=== PATIENT | male | born 1960 | race Caucasian/White ===

== ENCOUNTER 2019-08-04 20:51 | Inpatient (IN) | payer MEDICARE, OTHER ==
[~2019-08-04] VITALS: Ht 185.4 cm; Wt 77.3 kg
[~2019-08-04 20:51] MED LIST: ATOR40TA68 PO; LACO200T2 PO; LEVE10006 PO; LEVE500S8 GTB
[2019-08-04] MEDS ORDERED: CEFEPIME 2GM/50 ML (PMX) 50 ML IVPB STA (21:03)
[2019-08-04] MEDS ORDERED: SODIUM CHLORIDE 0.9% 1L BAG IV* STA (21:03)
[2019-08-04] MEDS ORDERED: VANCOMYCIN 1 GM (PMX) 250 ML IVPB ONE (21:30)
[2019-08-04] MEDS ORDERED: LORAZEPAM 2 MG INJ IM STA (21:32)
[2019-08-04] MEDS ORDERED: LEVETIRACETAM 1000 MG (PMX) 100 ML IVPB STA (21:33)
[2019-08-04] MEDS ORDERED: LEVETIRACETAM 1000 MG (PMX) 100 ML IVPB ONE (22:30)
[2019-08-04] MEDS ORDERED: FOSPHENYTOIN 100 MG PE/2ML INJ IV ONE (22:30)
[2019-08-04] MEDS ORDERED: SOD CHLORIDE 0.9% IVPB ONE (23:00)
[2019-08-04] MEDS ORDERED: FOSPHENYTOIN IVPB ONE (23:00)
[2019-08-04] MEDS ORDERED: LACTATED RINGER'S 1,000 ML IV STA (23:55)
[2019-08-05] VITALS (81 sets, daily range): BP systolic 72–119; BP diastolic 55–83; PULSE 72–105; RESP 8–46; Ht 185.4 cm; Wt 77.3 kg
[2019-08-05] MEDS ORDERED: ACETAMINOPHEN 650MG/20.3ML CUP PO PRN (01:00)
[2019-08-05] MEDS: DOCUSATE SODIUM 100 MG CAP PO SCH ×2 (01:00→13:00)
[2019-08-05] MEDS ORDERED: LORAZEPAM 2 MG INJ IV ONE (01:00)
[2019-08-05] MEDS ORDERED: MAGNESIUM HYDROXIDE 30ML CUP PO PRN (01:00)
[2019-08-05] MEDS ORDERED: ONDANSETRON 4 MG INJ IV PRN (01:00)
[2019-08-05] MEDS ORDERED: HYDROCODONE/APAP (5/325) TAB PO PRN ×2 (01:00)
[2019-08-05] MEDS ORDERED: NORepinephrine 8MG/250 ML (PMX 250 ML IV STA (01:05)
[2019-08-05] MEDS: ALBUTEROL/IPRATROPIUM (NEB) 3 ML AMP NEB SCH ×6 (02:15→21:55)
[2019-08-05] MEDS: DEXTROSE 5% 1,000 ML IV SCH ×3 (06:43→22:50)
[2019-08-05] MEDS: PANTOPRAZOLE 40 MG INJ IV SCH (06:43)
[2019-08-05] MEDS ORDERED: VANCOMYCIN IV PER PHARMACY XX SCH (09:00)
[2019-08-05] MEDS ORDERED: LEVETIRACETAM 1000 MG (PMX) 100 ML IVPB SCH (09:00)
[2019-08-05] MEDS ORDERED: LEVETIRACETAM 1500 MG (PMX) 100 ML IVPB SCH (09:00)
[2019-08-05] MEDS: CEFEPIME 1GM/50 ML (PMX) 50 ML IVPB SCH ×2 (09:58→20:58)
[2019-08-05] MEDS ORDERED: LACOSAMIDE 200 MG TABLET PO SCH (10:00)
[2019-08-05] MEDS: VANCOMYCIN 1.25 GM/NS 250 ML 250 ML IVPB SCH ×2 (11:58→22:46)
[2019-08-05] MEDS: LACOSAMIDE (100 MG/10 ML PO SYR) GTB SCH ×2 (14:33→21:05)
[2019-08-05] MEDS: NORepinephrine 8MG/250 ML (PMX 250 ML IV SCH ×3 (14:34→22:43)
[2019-08-05] MEDS: PHENYLephrine 20MG IN 250 ML 250 ML IV SCH ×3 (17:56→22:39)
[2019-08-05] MEDS: POTASSIUM CHLORIDE 50 ML IVPB PRN ×3 (20:46→23:21)
[2019-08-05] MEDS: LORAZEPAM 2 MG INJ IV PRN (20:59)
[2019-08-05] MEDS ORDERED: LEVETIRACETAM 500 MG TAB NGT SCH (21:00)
[2019-08-06] VITALS (103 sets, daily range): BP systolic 61–124; BP diastolic 49–96; PULSE 76–113; RESP 13–51
[2019-08-06] MEDS ORDERED: ALBUMIN HUMAN 25% 100 ML IV ONE
[2019-08-06] MEDS ORDERED: SODIUM CHLORIDE 0.45% 500 ML BAG IV* ONE
[2019-08-06] MEDS: PHENYLephrine 20MG IN 250 ML 250 ML IV SCH ×3 (00:46→07:11)
[2019-08-06] MEDS: DOCUSATE SODIUM 100 MG CAP PO SCH ×2 (01:00→13:00)
[2019-08-06] MEDS: ALBUTEROL/IPRATROPIUM (NEB) 3 ML AMP NEB SCH ×3 (01:17→09:40)
[2019-08-06] MEDS: PIPER-TAZO 3.375 GM IV (PMX) 100 ML IVPB SCH ×4 (02:29→17:17)
[2019-08-06] MEDS ORDERED: FUROSEMIDE 20 MG INJ IV ONE (02:30)
[2019-08-06] MEDS: POTASSIUM CHLORIDE 50 ML IVPB PRN ×3 (03:36→12:54)
[2019-08-06] MEDS: NORepinephrine 8MG/250 ML (PMX 250 ML IV SCH (04:01)
[2019-08-06] MEDS: PANTOPRAZOLE 40 MG INJ IV SCH (05:28)
[2019-08-06] MEDS ORDERED: PHENYTOIN 1,000 MG in SOD CHLORIDE 0.9% 100 ML IV ONE (08:00)
[2019-08-06] MEDS: DEXTROSE 5% 1,000 ML IV SCH ×2 (09:20→21:12)
[2019-08-06] MEDS ORDERED: NORepinephrine 8MG/250 ML (PMX 250 ML IV SCH (09:30)
[2019-08-06] MEDS: LACOSAMIDE (100 MG/10 ML PO SYR) GTB SCH ×2 (10:00→21:12)
[2019-08-06] MEDS ORDERED: DEXTROSE 50% 50 ML SYRINGE IV PRN (10:00)
[2019-08-06] MEDS ORDERED: GLUCOSE GEL 15 GRAM TUBE PO PRN ×2 (10:00)
[2019-08-06] MEDS ORDERED: GLUCAGON 1 MG INJ IM PRN (10:00)
[2019-08-06] MEDS ORDERED: GLUCOSE GEL 15 GRAM TUBE BUCCAL PRN (10:00)
[2019-08-06] MEDS: LEVETIRACETAM 500 MG TAB NGT SCH ×2 (10:00→21:12)
[2019-08-06] MEDS: VANCOMYCIN 1.25 GM/NS 250 ML 250 ML IVPB SCH (10:10)
[2019-08-06] MEDS ORDERED: PHENYLephrine 20MG IN 250 ML 250 ML IV SCH (10:30)
[2019-08-06] MEDS: FENTAnyl 1,000 MCG in SOD CHLORIDE 0.9% 80 ML IV SCH (10:58)
[2019-08-06] MEDS: PHENYLephrine 80 MG in DEXTROSE 5% 242 ML IV SCH ×3 (12:28→21:23)
[2019-08-06] MEDS: INSULIN ASPART [NOVOLOG] 3 ML PEN SC SCH ×3 (13:33→21:23)
[2019-08-06] MEDS: NORepinephrine 32 MG in DEXTROSE 5% 218 ML IV SCH (13:42)
[2019-08-06] MEDS: ALBUTEROL HFA 8 GM INHALER INH SCH ×3 (14:15→21:00)
[2019-08-06] MEDS: IPRATROPIUM (HFA) 12.9 GM INHALER INH SCH ×3 (14:15→21:00)
[2019-08-06] MEDS ORDERED: VASOPRESSIN 100 UNIT in SOD CHLORIDE 0.9% 95 ML IV SCH (15:00)
[2019-08-06] MEDS: PHENYTOIN 100 MG INJ IV SCH ×2 (15:20→21:15)
[2019-08-06] MEDS: VASOPRESSIN 60 UNIT in DEXTROSE 5% 60 ML IV SCH ×2 (15:30→18:23)
[2019-08-06] MEDS ORDERED: DOPamine 1,600 MG in DEXTROSE 5% 210 ML IV PRN (20:00)
[2019-08-07] VITALS (106 sets, daily range): BP systolic 80–154; BP diastolic 61–93; PULSE 56–109; RESP 15–34
[2019-08-07] MEDS: PIPER-TAZO 3.375 GM IV (PMX) 100 ML IVPB SCH ×5 (00:55→23:58)
[2019-08-07] MEDS: INSULIN ASPART [NOVOLOG] 3 ML PEN SC SCH ×2 (00:57→04:57)
[2019-08-07] MEDS: DOCUSATE SODIUM 100 MG CAP PO SCH ×3 (01:00→23:59)
[2019-08-07] MEDS: PHENYLephrine 80 MG in DEXTROSE 5% 242 ML IV SCH ×4 (01:53→18:42)
[2019-08-07] MEDS: ALBUTEROL HFA 8 GM INHALER INH SCH ×6 (02:02→21:45)
[2019-08-07] MEDS: IPRATROPIUM (HFA) 12.9 GM INHALER INH SCH ×6 (02:02→21:45)
[2019-08-07] MEDS: PANTOPRAZOLE 40 MG INJ IV SCH (05:53)
[2019-08-07] MEDS: PHENYTOIN 100 MG INJ IV SCH (05:53)
[2019-08-07] MEDS: NORepinephrine 32 MG in DEXTROSE 5% 218 ML IV SCH (07:35)
[2019-08-07] MEDS: ACCU-CHEK XX SCH ×16 (08:30→23:30)
[2019-08-07] MEDS ORDERED: INSULIN HUMAN REGULAR 100 UNIT in SOD CHLORIDE 0.9% 99 ML IV SCH (08:30)
[2019-08-07] MEDS ORDERED: DEXTROSE 50% 50 ML SYRINGE IV PRN ×2 (08:30)
[2019-08-07] MEDS: LEVETIRACETAM 500 MG TAB NGT SCH ×3 (09:00→20:42)
[2019-08-07] MEDS: VASOPRESSIN 60 UNIT in DEXTROSE 5% 60 ML IV SCH (09:10)
[2019-08-07] MEDS: POTASSIUM CHLORIDE 50 ML IVPB PRN (09:16)
[2019-08-07] MEDS: LACOSAMIDE (100 MG/10 ML PO SYR) GTB SCH ×2 (09:17→20:41)
[2019-08-07] MEDS ORDERED: VANCOMYCIN 1.25 GM/NS 250 ML 250 ML IVPB SCH (11:00)
[2019-08-07] MEDS: METOCLOPRAMIDE 10 MG INJ IV SCH ×3 (17:00→23:59)
[2019-08-07] MEDS: DEXTROSE 50% 50 ML SYRINGE IV PRN ×2 (19:34→22:37)
[2019-08-07] MEDS: BALSAM PERU/CASTOR OIL 60 GM TUBE TOP SCH (20:47)
[2019-08-08] VITALS (90 sets, daily range): BP systolic 75–109; BP diastolic 59–81; PULSE 59–102; RESP 7–31
[2019-08-08] MEDS: FENTAnyl 1,000 MCG in SOD CHLORIDE 0.9% 80 ML IV SCH (00:12)
[2019-08-08] MEDS: ACCU-CHEK XX SCH ×20 (00:30→19:30)
[2019-08-08] MEDS: IPRATROPIUM (HFA) 12.9 GM INHALER INH SCH ×2 (01:17→05:24)
[2019-08-08] MEDS: ALBUTEROL HFA 8 GM INHALER INH SCH ×2 (01:17→05:24)
[2019-08-08] MEDS: VASOPRESSIN 60 UNIT in DEXTROSE 5% 60 ML IV SCH ×2 (03:03→15:27)
[2019-08-08] MEDS: NORepinephrine 32 MG in DEXTROSE 5% 218 ML IV SCH (04:46)
[2019-08-08] MEDS: PANTOPRAZOLE 40 MG INJ IV SCH (05:37)
[2019-08-08] MEDS: PIPER-TAZO 3.375 GM IV (PMX) 100 ML IVPB SCH ×2 (05:37→11:15)
[2019-08-08] MEDS: METOCLOPRAMIDE 10 MG INJ IV SCH ×3 (05:37→18:40)
[2019-08-08] MEDS: POTASSIUM CHLORIDE 50 ML IVPB PRN ×3 (06:48→11:11)
[2019-08-08] MEDS: LEVETIRACETAM 500 MG TAB NGT SCH ×2 (08:19→21:33)
[2019-08-08] MEDS: LACOSAMIDE (100 MG/10 ML PO SYR) GTB SCH ×2 (08:19→21:33)
[2019-08-08] MEDS ORDERED: ALBUTEROL HFA 8 GM INHALER INH SCH (12:00)
[2019-08-08] MEDS: DOCUSATE SODIUM 100 MG CAP PO SCH (14:14)
[2019-08-08] MEDS: metroNIDAZOLE 500 MG/NS (PMX) 100 ML IVPB SCH ×2 (14:17→21:32)
[2019-08-08] MEDS: DEXTROSE 50% 50 ML SYRINGE IV PRN (15:24)
[2019-08-08] MEDS ORDERED: FUROSEMIDE 40 MG INJ IV ONE (16:30)
[2019-08-08] MEDS ORDERED: ALBUMIN HUMAN 25% 100 ML IV ONE (16:30)
[2019-08-08] MEDS: SOD CHLORIDE 0.9% 500 ML IV ONE ×2 (16:39→16:49)
[2019-08-08] MEDS ORDERED: INSULIN ASPART [NOVOLOG] 3 ML PEN SC SCH (21:00)
[2019-08-08] MEDS ORDERED: ACCU-CHEK XX SCH (21:00)
[2019-08-08] MEDS: CEFEPIME 1GM/50 ML (PMX) 50 ML IVPB SCH (21:32)
[2019-08-08] MEDS: BALSAM PERU/CASTOR OIL 60 GM TUBE TOP SCH (21:36)
[2019-08-09] VITALS (103 sets, daily range): BP systolic 82–135; BP diastolic 59–95; PULSE 70–113; RESP 14–35
[2019-08-09] MEDS: DOCUSATE SODIUM 100 MG CAP PO SCH ×2 (00:30→12:39)
[2019-08-09] MEDS: METOCLOPRAMIDE 10 MG INJ IV SCH ×4 (00:32→17:23)
[2019-08-09] MEDS: ACCU-CHEK XX SCH (01:46)
[2019-08-09] MEDS: INSULIN ASPART [NOVOLOG] 3 ML PEN SC SCH ×6 (01:51→21:36)
[2019-08-09] MEDS: LORAZEPAM 2 MG INJ IV PRN ×2 (01:55→11:15)
[2019-08-09] MEDS: VASOPRESSIN 60 UNIT in DEXTROSE 5% 60 ML IV SCH ×2 (03:30→15:24)
[2019-08-09] MEDS: FENTAnyl 1,000 MCG in SOD CHLORIDE 0.9% 80 ML IV SCH (03:43)
[2019-08-09] MEDS: NORepinephrine 32 MG in DEXTROSE 5% 218 ML IV SCH (04:00)
[2019-08-09] MEDS: PANTOPRAZOLE 40 MG INJ IV SCH (05:46)
[2019-08-09] MEDS: metroNIDAZOLE 500 MG/NS (PMX) 100 ML IVPB SCH ×3 (05:47→21:24)
[2019-08-09] MEDS: LEVETIRACETAM 500 MG TAB NGT SCH ×2 (08:25→21:23)
[2019-08-09] MEDS: CEFEPIME 1GM/50 ML (PMX) 50 ML IVPB SCH ×2 (08:26→21:24)
[2019-08-09] MEDS: LACOSAMIDE (100 MG/10 ML PO SYR) GTB SCH ×2 (08:26→21:24)
[2019-08-09] MEDS: BALSAM PERU/CASTOR OIL 60 GM TUBE TOP SCH (08:26)
[2019-08-09] MEDS ORDERED: POTASSIUM PHOSPHATE 40 MEQ in SOD CHLORIDE 0.9% 250 ML IVPB ONE (10:00)
[2019-08-09] MEDS ORDERED: SOD CHLORIDE 0.9% 500 ML IV ONE (14:00)
[2019-08-09] MEDS ORDERED: ALBUMIN HUMAN 25% 100 ML IV ONE (14:00)
[2019-08-09] MEDS ORDERED: FUROSEMIDE 40 MG INJ IV ONE (14:00)
[2019-08-10] VITALS (98 sets, daily range): BP systolic 85–128; BP diastolic 68–101; PULSE 76–110; RESP 13–37
[2019-08-10] MEDS: METOCLOPRAMIDE 10 MG INJ IV SCH ×4 (00:50→17:39)
[2019-08-10] MEDS: DOCUSATE SODIUM 100 MG CAP PO SCH (00:50)
[2019-08-10] MEDS: INSULIN ASPART [NOVOLOG] 3 ML PEN SC SCH ×6 (00:53→20:35)
[2019-08-10] MEDS: ACCU-CHEK XX SCH (01:07)
[2019-08-10] MEDS: VASOPRESSIN 60 UNIT in DEXTROSE 5% 60 ML IV SCH ×2 (03:30→15:30)
[2019-08-10] MEDS: PANTOPRAZOLE 40 MG INJ IV SCH (05:40)
[2019-08-10] MEDS: metroNIDAZOLE 500 MG/NS (PMX) 100 ML IVPB SCH ×3 (05:40→22:07)
[2019-08-10] MEDS: POTASSIUM CHLORIDE 50 ML IVPB PRN ×3 (06:03→19:38)
[2019-08-10] MEDS ORDERED: MAGNESIUM SULFATE 1 GM/D5W 100 ML IVPB ONE (07:00)
[2019-08-10] MEDS: CEFEPIME 1GM/50 ML (PMX) 50 ML IVPB SCH ×2 (08:55→20:33)
[2019-08-10] MEDS: POTASSIUM CHLORIDE 50 ML IVPB SCH ×4 (08:56→14:15)
[2019-08-10] MEDS: LEVETIRACETAM 500 MG TAB NGT SCH ×2 (08:57→20:32)
[2019-08-10] MEDS: LACOSAMIDE (100 MG/10 ML PO SYR) GTB SCH ×2 (09:36→20:33)
[2019-08-10] MEDS: BALSAM PERU/CASTOR OIL 60 GM TUBE TOP SCH (09:48)
[2019-08-10] MEDS: DOCUSATE SODIUM 10 MG/ML (10ML CUP) NGT SCH (20:32)
[2019-08-11] VITALS (68 sets, daily range): BP systolic 80–121; BP diastolic 68–111; PULSE 90–110; RESP 13–36
[2019-08-11] MEDS: METOCLOPRAMIDE 10 MG INJ IV SCH ×4 (00:46→17:12)
[2019-08-11] MEDS: INSULIN ASPART [NOVOLOG] 3 ML PEN SC SCH ×6 (00:47→21:38)
[2019-08-11] MEDS: ACCU-CHEK XX SCH (02:00)
[2019-08-11] MEDS: BALSAM PERU/CASTOR OIL 60 GM TUBE TOP SCH (02:22)
[2019-08-11] MEDS: VASOPRESSIN 60 UNIT in DEXTROSE 5% 60 ML IV SCH ×2 (03:30→15:30)
[2019-08-11] MEDS: PANTOPRAZOLE 40 MG INJ IV SCH (05:12)
[2019-08-11] MEDS: metroNIDAZOLE 500 MG/NS (PMX) 100 ML IVPB SCH ×3 (05:12→21:36)
[2019-08-11] MEDS: POTASSIUM CHLORIDE 50 ML IVPB PRN ×4 (07:35→16:53)
[2019-08-11] MEDS: CEFEPIME 1GM/50 ML (PMX) 50 ML IVPB SCH ×2 (09:01→21:36)
[2019-08-11] MEDS: DOCUSATE SODIUM 10 MG/ML (10ML CUP) NGT SCH ×2 (09:10→21:36)
[2019-08-11] MEDS: LACOSAMIDE (100 MG/10 ML PO SYR) GTB SCH ×2 (09:10→21:36)
[2019-08-11] MEDS: LEVETIRACETAM 500 MG TAB NGT SCH ×2 (09:10→21:36)
[2019-08-11] MEDS ORDERED: POTASSIUM CHLORIDE 20 MEQ POWDER FOR ORAL SOLN NGT ONE (09:30)
[2019-08-11] MEDS: COLLAGENASE 5 GM (UD JAR) TOP SCH (10:45)
[2019-08-11] MEDS: LORAZEPAM 2 MG INJ IV PRN (11:10)
[2019-08-11] MEDS ORDERED: VANCOMYCIN 1 GM 250 ML IVPB SCH (12:00)
[2019-08-12] VITALS (34 sets, daily range): BP systolic 75–120; BP diastolic 62–105; PULSE 94–128; RESP 14–35
[2019-08-12] MEDS: METOCLOPRAMIDE 10 MG INJ IV SCH ×5 (00:17→23:18)
[2019-08-12] MEDS: INSULIN ASPART [NOVOLOG] 3 ML PEN SC SCH ×6 (00:24→21:23)
[2019-08-12] MEDS: ACCU-CHEK XX SCH (01:01)
[2019-08-12] MEDS: VASOPRESSIN 60 UNIT in DEXTROSE 5% 60 ML IV SCH ×2 (03:30→15:30)
[2019-08-12] MEDS: metroNIDAZOLE 500 MG/NS (PMX) 100 ML IVPB SCH ×3 (05:54→22:08)
[2019-08-12] MEDS: PANTOPRAZOLE 40 MG INJ IV SCH (05:54)
[2019-08-12] MEDS: LORAZEPAM 2 MG INJ IV PRN ×2 (05:54→12:20)
[2019-08-12] MEDS: LACOSAMIDE (100 MG/10 ML PO SYR) GTB SCH ×2 (08:29→21:07)
[2019-08-12] MEDS: LEVETIRACETAM (100 MG/ML) 5ML CUP GTB SCH ×2 (08:29→21:07)
[2019-08-12] MEDS: DOCUSATE SODIUM 10 MG/ML (10ML CUP) NGT SCH ×2 (08:29→21:06)
[2019-08-12] MEDS: CEFEPIME 1GM/50 ML (PMX) 50 ML IVPB SCH ×2 (08:30→21:06)
[2019-08-12] MEDS: COLLAGENASE 5 GM (UD JAR) TOP SCH (08:30)
[2019-08-12] MEDS: BALSAM PERU/CASTOR OIL 60 GM TUBE TOP SCH (08:33)
[2019-08-12] MEDS ORDERED: D5W + KCL 20 MEQ 1,000 ML IV SCH (13:00)
[2019-08-13] VITALS (31 sets, daily range): BP systolic 77–109; BP diastolic 60–87; PULSE 94–122; RESP 15–37
[2019-08-13] MEDS: INSULIN ASPART [NOVOLOG] 3 ML PEN SC SCH ×5 (01:14→17:38)
[2019-08-13] MEDS: ACCU-CHEK XX SCH (02:00)
[2019-08-13] MEDS: VASOPRESSIN 60 UNIT in DEXTROSE 5% 60 ML IV SCH ×2 (03:30→13:24)
[2019-08-13] MEDS: metroNIDAZOLE 500 MG/NS (PMX) 100 ML IVPB SCH ×2 (05:23→13:03)
[2019-08-13] MEDS: METOCLOPRAMIDE 10 MG INJ IV SCH ×3 (05:23→17:38)
[2019-08-13] MEDS: PANTOPRAZOLE 40 MG INJ IV SCH (05:23)
[2019-08-13] MEDS: POTASSIUM CHLORIDE 50 ML IVPB PRN (06:53)
[2019-08-13] MEDS ORDERED: DEXTROSE 5%-0.45% NACL 1,000 ML IV SCH (08:30)
[2019-08-13] MEDS: CEFEPIME 1GM/50 ML (PMX) 50 ML IVPB SCH (09:28)
[2019-08-13] MEDS: LACOSAMIDE (100 MG/10 ML PO SYR) GTB SCH (09:30)
[2019-08-13] MEDS: LEVETIRACETAM (100 MG/ML) 5ML CUP GTB SCH (09:30)
[2019-08-13] MEDS: DOCUSATE SODIUM 10 MG/ML (10ML CUP) NGT SCH (09:30)
[2019-08-13] MEDS: COLLAGENASE 5 GM (UD JAR) TOP SCH (09:37)
[2019-08-13] MEDS: BALSAM PERU/CASTOR OIL 60 GM TUBE TOP SCH (10:36)
[2019-08-13] MEDS: LORAZEPAM 2 MG INJ IV PRN (14:28)
[2019-08-13] MEDS ORDERED: CASPOFUNGIN 70 MG in SOD CHLORIDE 0.9% 250 ML IVPB ONE (18:00)
[2019-08-14] MEDS ORDERED: CASPOFUNGIN 50 MG in SOD CHLORIDE 0.9% 250 ML IVPB SCH (18:00)
== END 2019-08-13 20:40 | disposition short-term general hospital (02) | DRG 870 ==
LOC: E/R 20:51 → ICU 23:38
PROVIDERS: ADMIT Internal Medicine; ATTEND Internal Medicine
PROC: 05HN33Z Insertion of Infusion Device into Left Internal Jugular Vein, Percutaneous Approach (ICD-10-PCS; 2019-08-04)
PROC: 5A1955Z Respiratory Ventilation, Greater than 96 Consecutive Hours (ICD-10-PCS; principal; 2019-08-06)
PROC: 0BH17EZ Insertion of Endotracheal Airway into Trachea, Via Natural or Artificial Opening (ICD-10-PCS; 2019-08-06)
PROC: 30233N1 Transfusion of Nonautologous Red Blood Cells into Peripheral Vein, Percutaneous Approach (ICD-10-PCS; 2019-08-09)
DX: A41.51 Sepsis due to Escherichia coli [E. coli] (principal); R65.21 Severe sepsis with septic shock; I62.03 Nontraumatic chronic subdural hemorrhage; J96.01 Acute respiratory failure with hypoxia; N17.0 Acute kidney failure with tubular necrosis; E87.2 Acidosis; G93.40 Encephalopathy, unspecified; N39.0 Urinary tract infection, site not specified; E87.0 Hyperosmolality and hypernatremia; R40.3 Persistent vegetative state; G40.211 Localization-related (focal) (partial) symptomatic epilepsy and epileptic syndromes with complex partial seizures, intractable, with status epilepticus; K56.7 Ileus, unspecified; E87.8 Other disorders of electrolyte and fluid balance, not elsewhere classified; E78.5 Hyperlipidemia, unspecified; B18.2 Chronic viral hepatitis C; E86.0 Dehydration; N18.9 Chronic kidney disease, unspecified; E87.6 Hypokalemia; Z98.2 Presence of cerebrospinal fluid drainage device; Z86.711 Personal history of pulmonary embolism; Z95.828 Presence of other vascular implants and grafts; Z85.72 Personal history of non-Hodgkin lymphomas; Z66 Do not resuscitate; D69.6 Thrombocytopenia, unspecified; Z85.841 Personal history of malignant neoplasm of brain; Z74.01 Bed confinement status; D63.1 Anemia in chronic kidney disease; S31.000A Unspecified open wound of lower back and pelvis without penetration into retroperitoneum, initial encounter; X58.XXXA Exposure to other specified factors, initial encounter; F03.90 Unspecified dementia, unspecified severity, without behavioral disturbance, psychotic disturbance, mood disturbance, and anxiety; L89.621 Pressure ulcer of left heel, stage 1; L89.610 Pressure ulcer of right heel, unstageable; L89.022 Pressure ulcer of left elbow, stage 2; L89.012 Pressure ulcer of right elbow, stage 2; L89.896 Pressure-induced deep tissue damage of other site; B37.9 Candidiasis, unspecified; A41.59 Other Gram-negative sepsis
CPT/HCPCS: 31500; 36415; 36430; 36600; 70450; 71045; 73620; 76775; 80048; 80053; 80069; 80185; 80202; 81001; 82803; 82962; 83605; 83735; 84100; 84132; 84145; 84484; 85014; 85018; 85025; 85610; 85730; 86850; 86900; 86901; 86920; 87070; 87081; 87086; 89220; 93005; 94002; 94003; 94640; 94660; 94664; 94770; 95819; 96365; 96367; 96372; 96375; 96376; C9113; J0692; J1165; J1815; J1940; J1953; J2060; J2370; J2543; J2765; J3010; J3370; J3475; J3480; J7030; J7040; J7042; J7050; J7070; J7120; P9016; P9047; Q2009